=== PATIENT | male | born 1985 | race Two or more races ===

== ENCOUNTER 2024-05-30 15:34 | Emergency (ER) | payer BC, SELFPAY ==
[2024-05-30 15:35] VITALS: BMI 26.7
[2024-05-30 15:41] VITALS: BP 134/98; PULSE 92; RESP 20; TEMP 36.7; O2SAT 96
--- NOTE | 2024-05-30 16:43 | XR_ITS ---
Examination: Hand, right 2 views Technique: AP lateral right hand 2 views Exam date and time: hrs. Indications: Laceration to the fifth digit today, pain. Findings: Tiny foreign body in the soft tissue adjacent to the distal aspect proximal phalanx fourth digit No acute infarct. Impression: No acute fracture
--- NOTE | 2024-05-30 16:44 | EDNOTE_ITS ---
ED Wound/Laceration-RME/HPI General Chief Complaint: Wound/Laceration Stated Complaint: LAC LEFT 5TH KNUCKLE Time Seen by Provider: 05/30/24 15:42 Arrival date/time: 05/30/24 15:34 This is a 38-year-old male that has a laceration to his left fifth digit/knuckle-in between 4-5 digit. Patient states that he hurt it last night. Patient's wound has been there for more than 12 hours. Related Data Previous Rx's ?Medication ?Instructions ?Recorded cephalexin 500 mg tablet 500 mg PO QID 7 days #28 tab s 05/30/24 doxycycline hyclate 100 mg tablet 100 mg PO BID 7 days #14 tabs 05/30/24 ibuprofen 800 mg tablet 800 mg PO Q6H PRN pain #14 t abs 05/30/24 Allergies Allergy/AdvReac Type Severity Reaction Status Date / Time No Known Allergies Allergy Verified 05/30/24 15:37 Course Orders Category Date Time Status XR hand RT 2V Stat Exams 05/30/24 16:43 Taken Ibuprofen Tab [Motrin Tab] Med 05/30/24 16:43 Discontinued 800 mg PO X1 ONE Tet,Diphth,Pertuss(Acell)-Tdap [Boostrix Vacc] Med 05/30/24 16:43 Discontinued 0.5 ml IMI .ONCE ONE cefTRIAXone [Rocephin] 1,000 mg Med 05/30/24 16:43 Discontinued Lidocaine 1% 20 ml [Xylocaine 1% 20 ML] 2.1 ml IM X1 Vital Signs Vital signs: Vital Signs Temperature 98.1 F 05/30/24 15:41 Pulse Rate 92 05/30/24 15:41 Respiratory Rate 20 05/30/24 15:41 Blood Pressure 134/98 H 05/30/24 15:41 Pulse Oximetry (%) 96 05/30/24 15:41 Oxygen Delivery Method Room Air 05/30/24 15:41 Wound / Laceration MDM Narrative MDM Narrative:: I discussed case with Dr. Hastings, wound has been there for more than 12 hours. He stated to talk to patient and let them know that we could not suture it close like we normally would because he waited too long to come in. The plan is to put sutures in place to help it heal but not to close it all the way. Will treat patient with Rocephin and a tetanus shot. Will send patient home with antibiotics. Patient verbalizes understanding. Patient will come in if symptoms change or worsen. 2 sutures 3-0 placed Medications / Prescriptions Medication administrations:: Medication Administration History Discontinued Medications Ceftriaxone Sodium 1,000 mg/ (Lidocaine HCl 2.1 ml) 0 mg IM X1 ONE Stop: 05/30/24 16:44 Last Admin: 05/30/24 17:02 Dose: 1,000 mg Documented By: GLADIS Comments: 2.1 ml lido Diphtheria/Tetanus/Acell Pertussis (Diphth,Pertuss(Acell),Tet Vac 0.5 Ml Syr- Adult) 0.5 ml IMi .ONCE ONE Stop: 05/30/24 16:44 Last Admin: 05/30/24 17:01 Dose: 0.5 ml Documented By: GLADIS Ibuprofen (Ibuprofen Tab 400 Mg Tablet) 800 mg PO X1 ONE Stop: 05/30/24 16:44 Last Admin: 05/30/24 17:01 Dose: 800 mg Documented By: GLADIS Discharge Plan Plan Patient Disposition: HOME (Self Care) Patient condition on transfer: Stable Prescriptions/Referrals Prescriptions/Med Rec: New ibuprofen 800 mg tablet 800 mg PO Q6H PRN (Reason: pain) Qty: 14 0RF cephalexin 500 mg tablet 500 mg PO QID 7 Days Qty: 28 0RF doxycycline hyclate 100 mg tablet 100 mg PO BID 7 Days Qty: 14 0RF Problem List Clinical Impression: Laceration Patient/Caregiver Discharge Instructions Discharge Activity: activity as tolerated Education Materials: Suture Care Additional Instructions: Take antibiotics as prescribed. Sutures will stay in place for 7 days. Patient will need to follow-up with primary provider in 1 to 2 days. Come back to the emergency room if symptoms change or worsen. Print Language: Ethiopian Stand Alone Forms: Mireya Award Info., Patient Portal Info Letter PA/DOBBY LOOM WEAVER Supervising Physician PA/TALIA Supervising Physician: eddi
[2024-05-30] MEDS: DIPHTH,PERTUSS(ACELL),TET VAC 0.5 ML SYR- ADULT IMi (17:01)
[2024-05-30] MEDS: IBUPROFEN TAB 400 MG TABLET 800 MG PO (17:01)
[2024-05-30] MEDS: cefTRIAXone 1,000 MG, LIDOCAINE 1% 20 ML 2.1 ML IM (17:02)
== END 2024-05-30 18:24 | disposition home or self-care (01) ==
LOC: SERX 17:04
PROVIDERS: Emergency Provider Family Medicine; PCP Internal Medicine
DX: S61.216A Laceration without foreign body of right little finger without damage to nail, initial encounter (principal); X58.XXXA Exposure to other specified factors, initial encounter; Z23 Encounter for immunization
CPT/HCPCS: 12001; 73120; 90471; 90715; 96372; 99283; J0696; J3490; A9270